=== PATIENT | male | born 2000 | race Hispanic/Latino ===

== ENCOUNTER 2021-08-09 12:40 | Emergency (ER) | payer MEDICAID, SELFPAY ==
[2021-08-09 20:40] LABS: SARS-CoV-2 PCR by NAA Not Detected (NotDetected)
== END 2021-08-09 13:23 | disposition home or self-care (01) ==
LOC: MADERS 12:40
DX: B34.9 Viral infection, unspecified (principal); Z20.822 Contact with and (suspected) exposure to COVID-19
CPT/HCPCS: 99406; U0003; U0005